=== PATIENT | male | born 1945 | race Caucasian/White ===

== ENCOUNTER 2017-09-25 13:08 | Day surgery (SDC) | payer OTHER, MEDICARE ==
[~2017-09-25] VITALS: Ht 180.3 cm; Wt 97.2 kg
[2017-09-25] MEDS ORDERED: METO25 (13:36)
[2017-09-25] MEDS ORDERED: LISI20 (13:37)
[2017-09-25] MEDS ORDERED: Simvastatin40 MG (13:38)
[2017-09-25] MEDS ORDERED: AMLO10 (13:38)
[2017-09-25] MEDS ORDERED: OMEPRAZOLE MAGN20 MG (13:38)
== END 2017-09-25 15:31 | disposition home or self-care (01) ==
LOC: ORSCSDS 13:08
PROVIDERS: Internal Medicine Gastroenterology
PROC: 0DBN8ZX Excision of Sigmoid Colon, Via Natural or Artificial Opening Endoscopic, Diagnostic (ICD-10-PCS; principal; 2017-09-25 14:45)
PROC: 0DBP8ZX Excision of Rectum, Via Natural or Artificial Opening Endoscopic, Diagnostic (ICD-10-PCS; principal; 2017-09-25 14:45)
PROC: 0DBL8ZX Excision of Transverse Colon, Via Natural or Artificial Opening Endoscopic, Diagnostic (ICD-10-PCS; principal; 2017-09-25 14:45)
PROC: 0DBH8ZX Excision of Cecum, Via Natural or Artificial Opening Endoscopic, Diagnostic (ICD-10-PCS; principal; 2017-09-25 14:45)
PROC: 0DBM8ZX Excision of Descending Colon, Via Natural or Artificial Opening Endoscopic, Diagnostic (ICD-10-PCS; principal; 2017-09-25 14:45)
PROC: 0DB58ZX Excision of Esophagus, Via Natural or Artificial Opening Endoscopic, Diagnostic (ICD-10-PCS; principal; 2017-09-25 14:45)
PROC: 0DB68ZX Excision of Stomach, Via Natural or Artificial Opening Endoscopic, Diagnostic (ICD-10-PCS; principal; 2017-09-25 14:45)
DX: K21.9 Gastro-esophageal reflux disease without esophagitis (principal); D12.3 Benign neoplasm of transverse colon; D12.0 Benign neoplasm of cecum; K63.5 Polyp of colon; K62.1 Rectal polyp; K64.8 Other hemorrhoids; K44.9 Diaphragmatic hernia without obstruction or gangrene; K31.9 Disease of stomach and duodenum, unspecified; Z12.11 Encounter for screening for malignant neoplasm of colon; Z86.010 Personal history of colon polyps; I10 Essential (primary) hypertension; J44.9 Chronic obstructive pulmonary disease, unspecified; E78.5 Hyperlipidemia, unspecified; F17.210 Nicotine dependence, cigarettes, uncomplicated; Z79.899 Other long term (current) drug therapy
CPT/HCPCS: 88305; 88342; J2250; J7120

== ENCOUNTER 2018-11-05 13:43 | Inpatient (IN) | payer OTHER, MEDICARE ==
[~2018-11-05] VITALS: Ht 180.3 cm; Wt 101.3 kg
[~2018-11-05 13:43] MED LIST: AMLO10; ATOR10 PO; Aspirin EC81 MG PO; ELIQUIS5 MG PO; FURO40 PO; LISI20 PO; MAGOXI400 PO; METO100ER PO; METO25; OMEPRAZOLE MAGN20 MG PO; POTA10T PO; STIOLTO RESPIMAT4 GM INH; Simvastatin40 MG
[2018-11-05 14:33] LABS: BASOPHILS ABSOLUTE AUTO 0.05 K/mm3 (0.00-0.23); BASOPHILS PERCENT AUTO 1 % (0-2); EOSINOPHILS ABSOLUTE AUTO 0.06 K/mm3 (0.00-0.68); EOSINOPHILS PERCENT AUTO 1 % (0-6); Hematocrit 39.1 % (37.0-53.0); Hemoglobin 12.5 g/dL (13.5-17.5); IMMATURE GRAN ABSOLUTE AUTO 0.03 K/mm3 (0.00-0.10); IMMATURE GRAN PERCENT AUTO 0 % (0-1); LYMPHOCYTES ABSOLUTE AUTO 1.46 K/mm3 (0.84-5.20); LYMPHOCYTES PERCENT AUTO 21 % (21-46); MONOCYTES ABSOLUTE AUTO 0.73 K/mm3 (0.16-1.47); MONOCYTES PERCENT AUTO 10 % (4-13); Mean Corpuscular HGB 29.5 pg (26.0-34.0); Mean Corpuscular Volume 92 fL (80-100); NEUTROPHILS ABSOLUTE AUTO 4.73 K/mm3 (1.96-9.15); NEUTROPHILS PERCENT AUTO 67 % (41-73); Platelet Count 272 K/mm3 (150-400); RDW Coefficient Variation 14.6 % (11.7-14.2); RDW Standard Deviation 48.9 fL (35.1-46.3); Red Blood Cell Count 4.24 M/mm3 (4.30-5.90); White Blood Cell Count 7.06 K/mm3 (4.00-11.30)
[2018-11-05 15:02] LABS: Alanine Aminotransfer (ALT/SGP 128 U/L (12-78); Albumin, Blood 3.7 g/dL (3.4-5.0); Albumin/Globulin Ratio 1.2 (0.8-1.8); Alk Phos 67 U/L (50-136); Anion Gap 8 mmol/L (6-16); Aspartate Aminotrans (AST/SGOT 74 U/L (12-37); Blood Urea Nitrogen 42 mg/dL (8-24); Bun/Creatinine Ratio 32.6 (12.0-20.0); CO2, Blood 27 mmol/L (21-32); Calcium, Blood 8.4 mg/dL (8.5-10.1); Chloride, Blood 104 mmol/L (98-108); Creatinine, Blood 1.29 mg/dL (0.60-1.20); Globulin, Blood 3.2 g/dL (2.2-4.0); Glomerular Filtration Rate 58 (60-); Glucose, Blood 101 mg/dL (70-99); Potassium, Blood 3.9 mmol/L (3.5-5.5); Sodium, Blood 139 mmol/L (136-145); Total Protein, Blood 6.9 g/dL (6.4-8.2); Troponin I <0.015 ng/mL (0.000-0.040)
[2018-11-05] MEDS ORDERED: Pacerone400 MG PO (15:11)
--- NOTE | 2018-11-05 18:30 | NUR ---
ADMIT NOTE- PT ALERT AND ORIENTED 1PA FOR SAFETY WITH AMBULATION. NO CURRENT C/O PAIN. NO S&S OF DISTRESS. DYSPNEA ON EXERTION. PT STATES HE USES 2L O2 VIA NC AT NIGHT AT HOME. PT CONFIRMED ALL OF HIS MEDICATIONS WITH JULIÁN GARVIN. SPOKE TO HIM AGAIN ABOUT THEM. PER THE PT RECONCILED MEDICATIONS ARE CORRECT. PT IS A [facility] PAT[facility] GOLD TEAM. LUNG SOUNDS ARE CLEAR IN ALL LOBES ON ARIVAL HOWEVER THE LEFT IS FAR MORE DIMINISHED THAN THE RIGHT. PT FEET HAVE +2 PITTING EDEMA, HOWEVER LEGS HAVE NONE. PASSED ON IN BEDSIDE REPORT TO NIGHT RN ETIENNE. NIGHT RN TO COMPLETE FULL ADMIT ASSESSMENT.
--- NOTE | 2018-11-06 03:31 | NUR ---
SHIFT SUMMARY PT. ARRIVED YESTERDAY EVENING TO THE UNIT. A&O X4 WITH 1 ASSIST TO THE BATHROOM. CHF EXACERBATION, SOB ON EXERTION WITH 2+ SWELLING TO BLE. ON 1200ML FLUID RESTRICTION. PT. ON RA WHILE AWAKE BUT USES 2L OF 02 AT HS. HAS NOT BEEN ABLE TO SLEEP T/O THE NIGHT, BUT RESTING COMFORTABLY IN BED WATCHING TV, NO APPARENT DISTRESS NOTED. TELEMETRY IN PLACE WELL SCD'S. CALL LIGHT WITH IN REACH AND SIDE RAILS UP X2. WILL CONT TO MONITOR.
[2018-11-06 04:45] LABS: BASOPHILS ABSOLUTE AUTO 0.04 K/mm3 (0.00-0.23); BASOPHILS PERCENT AUTO 1 % (0-2); EOSINOPHILS ABSOLUTE AUTO 0.08 K/mm3 (0.00-0.68); EOSINOPHILS PERCENT AUTO 1 % (0-6); Hematocrit 39.5 % (37.0-53.0); Hemoglobin 12.5 g/dL (13.5-17.5); IMMATURE GRAN ABSOLUTE AUTO 0.03 K/mm3 (0.00-0.10); IMMATURE GRAN PERCENT AUTO 0 % (0-1); LYMPHOCYTES ABSOLUTE AUTO 1.15 K/mm3 (0.84-5.20); LYMPHOCYTES PERCENT AUTO 17 % (21-46); MONOCYTES ABSOLUTE AUTO 0.62 K/mm3 (0.16-1.47); MONOCYTES PERCENT AUTO 9 % (4-13); Mean Corpuscular HGB 30.4 pg (26.0-34.0); Mean Corpuscular HGB Conc 31.6 g/dL (31.5-36.5); Mean Platelet Volume 9.9 fL (9.1-12.4); NEUTROPHILS PERCENT AUTO 72 % (41-73); Platelet Count 238 K/mm3 (150-400); RDW Coefficient Variation 14.4 % (11.7-14.2); RDW Standard Deviation 50.6 fL (35.1-46.3); Red Blood Cell Count 4.11 M/mm3 (4.30-5.90); White Blood Cell Count 6.72 K/mm3 (4.00-11.30)
[2018-11-06 04:46] LABS: Mean Corpuscular Volume 96 fL (80-100)
[2018-11-06 05:02] LABS: Anion Gap 8 mmol/L (6-16); Blood Urea Nitrogen 39 mg/dL (8-24); Bun/Creatinine Ratio 32.2 (12.0-20.0); CO2, Blood 28 mmol/L (21-32); Calcium, Blood 8.7 mg/dL (8.5-10.1); Chloride, Blood 104 mmol/L (98-108); Creatinine, Blood 1.21 mg/dL (0.60-1.20); Glomerular Filtration Rate >60 (60-); Glucose, Blood 113 mg/dL (70-99); Magnesium, Blood 2.3 mg/dL (1.6-2.4); Potassium, Blood 3.7 mmol/L (3.5-5.5); Sodium, Blood 140 mmol/L (136-145)
--- NOTE | 2018-11-06 14:34 | NUR ---
DR BRIGGS OFFICE NOTIFIED OF CONSULT.
--- NOTE | 2018-11-06 17:07 | NUR ---
SHIFT SUMMARY- PT A/OX4, INDEP IN ROOM. PT DENIES ANY PAIN. LS DIMINISHED WITH FAINY EXP WHEEZE AND COARSENESS IN THE BASES. ON 2L N/C AT HS, HAS BEEN ON RA DURING THE DAY. PT REMAINS SOB WITH EXERTION. ON 1200ML FLUID RESTRICTION. TELE AFIB 90-110'S. PT IS ANXIOUSLY AWAITING DR BRIGGS'S CONSULT, CONSULT PLACED THIS AM. NO OTHER ACUTE CHANGES THIS SHIFT.
--- NOTE | 2018-11-07 05:45 | NUR ---
SHIFT SUMMARY- PT. AWAKE MOST OF THE NIGHT, 02 @ 2L. A&O, INDEPENDENT. DENIES ANY PAIN OR DISCOMFORT. STILL HAVING SOB ON EXERTION. WAITING TO BE SEEN BY CARDIO THIS AM. CALL LIGHT WITHIN REACH AND SIDE RAILS UP X2. WILL CONT TO MONITOR.
--- NOTE | 2018-11-07 08:52 | NUR ---
SPOKE WTIH DR BRIGGS HE IS AWARE OF CONSULT AND WILL BE IN TO SEE PT.
--- NOTE | 2018-11-07 09:33 | NUR ---
DR BRIGGS IN TO SEE PT.
--- NOTE | 2018-11-07 11:49 | NUR ---
Echocardiogram completed.
--- NOTE | 2018-11-07 12:51 | NUR ---
[facility] TO [facility].
--- NOTE | 2018-11-07 13:52 | NUR ---
REPORT CALLED TO HUSSEIN NGUYEN TO TRANSFER TO PCU 1 FROM [facility]. BELONGINGS TAKEN TO PCU.
--- NOTE | 2018-11-07 14:33 | NUR ---
PT ARRIVED TO PCU 1 VIA [facility] FROM [facility], DID RECIEVE REPORT FROM AMADOR RN. TR BAND SITE IS CLEAR WITH NO DRAINING, OR SWELLING. HE STATES HE FEELS A LOT BETTER, HE WAS CARDIOVERTED WHILE IN PROCEDURE. EXPLAINED WHAT WE WILL BE DOING, AND WHEN NURSE WILL START DEFLATING BAND. CALL LIGHT IN REACH.
--- NOTE | 2018-11-07 15:57 | NUR ---
b/ps have been running in the 80's, heart rate in the 50's, call to Dr. Moscoso, he said to just keep an eye on it. will continue to monitor, call light in reach.
--- NOTE | 2018-11-07 18:50 | NUR ---
VS ARE SOME BETTER, PT DID NOT FEEL UP TO EATING DINNER, TR BAND SITE IS CLEAR, NO FURTHER CHANGES.
--- NOTE | 2018-11-07 20:31 | NUR ---
Amio drip rate change to 16.6 ml/hr per orders at 2021. Rate change verified with CHAZ Thomas.
--- NOTE | 2018-11-08 02:23 | NUR ---
Assumed care at approx 1900. Pt bradycardic and hypotensive in low 100's/70's. Dr. Moscoso notified of cardiac state and orders to give metoprolol and PO amio clarified. Per dr. moscoso, D/C PO amio and hold metoprolol until 7/4 in the AM. This RN followed orders as recieved. Pt alert and oriented, answers questions and follows commands appropriately. Moves independantly in bed, able to ambulate to BSC and up to chair with minimal assistance. TR band in place, air removed per protocol, arm band in place. No bleed or hematoma present at R radial site. See shift assessment for detailed systems assessment. Call light in reach. Pt is able to make needs known. Will continue to monitor.
[2018-11-08 04:08] LABS: BASOPHILS ABSOLUTE AUTO 0.01 K/mm3 (0.00-0.23); BASOPHILS PERCENT AUTO 0 % (0-2); EOSINOPHILS PERCENT AUTO 0 % (0-6); Hematocrit 40.7 % (37.0-53.0); Hemoglobin 12.6 g/dL (13.5-17.5); IMMATURE GRAN ABSOLUTE AUTO 0.07 K/mm3 (0.00-0.10); IMMATURE GRAN PERCENT AUTO 1 % (0-1); LYMPHOCYTES ABSOLUTE AUTO 0.92 K/mm3 (0.84-5.20); LYMPHOCYTES PERCENT AUTO 8 % (21-46); MONOCYTES ABSOLUTE AUTO 1.06 K/mm3 (0.16-1.47); MONOCYTES PERCENT AUTO 9 % (4-13); Mean Corpuscular HGB 29.8 pg (26.0-34.0); Mean Corpuscular Volume 96 fL (80-100); Mean Platelet Volume 10.6 fL (9.1-12.4); NEUTROPHILS ABSOLUTE AUTO 9.51 K/mm3 (1.96-9.15); NEUTROPHILS PERCENT AUTO 82 % (41-73); Platelet Count 270 K/mm3 (150-400); RDW Coefficient Variation 14.9 % (11.7-14.2); Red Blood Cell Count 4.23 M/mm3 (4.30-5.90); White Blood Cell Count 11.57 K/mm3 (4.00-11.30)
[2018-11-08 04:23] LABS: Bun/Creatinine Ratio 32.8 (12.0-20.0); Calcium, Blood 8.6 mg/dL (8.5-10.1); Creatinine, Blood 1.31 mg/dL (0.60-1.20); Potassium, Blood 4.2 mmol/L (3.5-5.5)
--- NOTE | 2018-11-08 05:34 | NUR ---
Shift Summary No acute changes this shift. Pt remains with VSS. Alert and oriented, responds to questions and commands appropriately, able to make needs known, and uses call light appropriately. Pt remains with occasional SOB relieved with the placement of 2L NC. Pt states he doesn't sleep more than 2 hours at a time at baseline, tonight, pt slept approx total of 4 hours in 2 hour stents. Rradial site free from bleed or hematoma, pulse palp, fully deflated at 0415. Pt educated on arm board and R arm restriction and states understanding. Amio drip infusing into LW site at per orders. Pt c/o back pain relieved with tylenol PRN er emar and reposition to recliner chair. Pt amb to bsc with SBA. Will continue to monitor and update as needed.
--- NOTE | 2018-11-08 14:22 | NUR ---
PT HAS HAD TWO EPISODES OF EMESIS. ZOFRAN IS ADMIN AFTER FIRST WITH MINIMAL RESULTS. IS CALLED AFTER SECOND EPISODE AND REGLAN IV 5MG Q6 PRN NAUSEA AND VOMITTING IS ORDERED. PT IS UP TO CHAIR AND IS ENCOURAGED TO REFRAIN FROM DRINKING EVEN SMALL AMOUNTS FOR A LITTLE WHILE UNTIL STOMACH SETTLES DOWN. HE VERBALIZED UNDERSTANDING.
--- NOTE | 2018-11-08 18:02 | NUR ---
END OF SHIFT; PT HAD TWO EPISODES OF NAUSEA WITH VOMITTING TODAY. SUCCESSFULLY TREATED AFTER ADMIN OF REGLAN. PT STATES STILL FEELS NAUSEATED BUT NO VOMITTING SINCE REGLAN. REFUSED DINNER TONIGHT. HAS BEEN RESTING COMFORTABLY ONLY WAKING TO ASK FOR TYLENOL FOR BACK PAIN AND TO USE RESTROOM. HE IS MED WITH TELE STATUS AT THIS TIME. HR IS 67 IN AFIB. PT DOES EXPXRESS ANXIETY DURING DAY ABOUT GOING HOME HE IS CONCERNED ABOUT BEING ABLE TO TAKE CARE OF HIMSELF SINCE SPOUSE ONE MONTH AGO. VITAL SIGNS ARE STABLE CHARTED AND PT IS AO X 4. HIS LUNGS ARE CLEAR TO AUSCULTATION. TR BAND SITE IS CLEAN AND DRY AND PT STATES HE FEELS BETTER WITH A BANDAID AND ARM BOARD OVER SITE. HE DENIES ANY CHEST PAIN OR DISCOMFORT.
--- NOTE | 2018-11-08 23:09 | NUR ---
Assumed care of pt at approx 1900. Pt sleeping at time of arrival. Pt awoken to verbal and light touch. VSS. breathing easy and unlabored. No apparent sign of distress. Pt denies chest pain, chest pressure, SOB, nausea. Pt appears comfortable. Pt able to move all extremities independantly, answers questions appropriately, follows commands and directions, uses call light to make needs known. Pt up to BSC and uses urinal at bedside independantly. See shift assessment for detailed systems assessment. Pt perfusing to all extremities. R radial site with apparent old blood drainage consistant with day shift, per day shift RN. No tenderness, hematoma, or active bleed assessed. Dressing changed on r radial site and marisa dressing applied, arm board in place. Pt educated on arm board and radial site restrictions. Pt has been compliant with restrictions. Will continue to monitor and update as needed. Pt is currently medical status per orders, still remains in PCU 1.
[2018-11-09 03:59] LABS: BASOPHILS ABSOLUTE AUTO 0.03 K/mm3 (0.00-0.23); BASOPHILS PERCENT AUTO 0 % (0-2); EOSINOPHILS ABSOLUTE AUTO 0.03 K/mm3 (0.00-0.68); EOSINOPHILS PERCENT AUTO 0 % (0-6); Hematocrit 37.8 % (37.0-53.0); Hemoglobin 12.1 g/dL (13.5-17.5); IMMATURE GRAN ABSOLUTE AUTO 0.02 K/mm3 (0.00-0.10); IMMATURE GRAN PERCENT AUTO 0 % (0-1); LYMPHOCYTES ABSOLUTE AUTO 0.89 K/mm3 (0.84-5.20); LYMPHOCYTES PERCENT AUTO 11 % (21-46); MONOCYTES ABSOLUTE AUTO 0.68 K/mm3 (0.16-1.47); MONOCYTES PERCENT AUTO 8 % (4-13); Mean Corpuscular HGB 30.5 pg (26.0-34.0); Mean Corpuscular Volume 95 fL (80-100); NEUTROPHILS ABSOLUTE AUTO 6.84 K/mm3 (1.96-9.15); NEUTROPHILS PERCENT AUTO 81 % (41-73); Platelet Count 241 K/mm3 (150-400); RDW Coefficient Variation 14.6 % (11.7-14.2); RDW Standard Deviation 51.4 fL (35.1-46.3); Red Blood Cell Count 3.97 M/mm3 (4.30-5.90); White Blood Cell Count 8.49 K/mm3 (4.00-11.30)
[2018-11-09 04:18] LABS: Anion Gap 6 mmol/L (6-16); Blood Urea Nitrogen 34 mg/dL (8-24); Bun/Creatinine Ratio 30.9 (12.0-20.0); CO2, Blood 30 mmol/L (21-32); Calcium, Blood 8.1 mg/dL (8.5-10.1); Chloride, Blood 102 mmol/L (98-108); Glomerular Filtration Rate >60 (60-); Glucose, Blood 102 mg/dL (70-99); Potassium, Blood 3.7 mmol/L (3.5-5.5); Sodium, Blood 138 mmol/L (136-145)
--- NOTE | 2018-11-09 05:45 | NUR ---
Shift Summary No acute changes this shift. VSS. Pt asleep for the majority of this shift. Pt states "I feel better" with the sleep he has recieved. No events on tele. No apparent sign of distress, breathing easy and unlabored. Pt denies SOB, denies chest pain or pressure. Pain within proportion this shift with administration of tylenol per orders. Pt able to void with either the urinal at bedside, or to ambulate to bathroom with minimal assistance. Danny dressing remains in place over TR site on R radial. No complains of pain, no blood on dressing at this time. See previous notes for detailed account of begining of shift. Will continue to monitor and update as needed.
[2018-11-09] MEDS ORDERED: SPIR25 PO (09:51)
== END 2018-11-09 11:18 | disposition home or self-care (01) | DRG 287 ==
LOC: ER 13:43 → MEDS 16:10 → PCU 11-07 13:51
PROVIDERS: Emergency Medicine; Internal Medicine; ADMIT Internal Medicine
PROC: B201YZZ Plain Radiography of Multiple Coronary Arteries using Other Contrast (ICD-10-PCS; principal; 2018-11-07)
PROC: 5A2204Z Restoration of Cardiac Rhythm, Single (ICD-10-PCS; 2018-11-07)
DX: I11.0 Hypertensive heart disease with heart failure (principal); I50.43 Acute on chronic combined systolic (congestive) and diastolic (congestive) heart failure; I48.2 Chronic atrial fibrillation; J44.9 Chronic obstructive pulmonary disease, unspecified; E78.5 Hyperlipidemia, unspecified; K21.9 Gastro-esophageal reflux disease without esophagitis; I25.10 Atherosclerotic heart disease of native coronary artery without angina pectoris; I71.4 Abdominal aortic aneurysm, without rupture; I42.9 Cardiomyopathy, unspecified; I25.2 Old myocardial infarction; Z95.1 Presence of aortocoronary bypass graft; Z95.810 Presence of automatic (implantable) cardiac defibrillator; Z95.5 Presence of coronary angioplasty implant and graft; Z79.01 Long term (current) use of anticoagulants; Z79.82 Long term (current) use of aspirin; Z79.899 Other long term (current) drug therapy; Z87.891 Personal history of nicotine dependence
CPT/HCPCS: 36415; 71046; 80048; 80053; 83735; 84484; 85025; 92960; 93005; 93010; 93306; 93458; 94640; 94664; 94760; 98960; 99152; 99285-25; A9270; C1769; C1894; J0282; J1644; J2250; J2405; J2765; J3010; J7030; J7060; Q9967

== ENCOUNTER 2018-12-21 06:11 | Day surgery (SDC) | payer OTHER ==
[~2018-12-21] VITALS: Ht 182.9 cm; Wt 99.0 kg
[~2018-12-21 06:11] MED LIST changes: +Pacerone400 MG PO; +SPIR25 PO
--- NOTE | 2018-12-21 07:30 | NUR ---
CALL LIGHT IN REACH.
[2018-12-21 07:35] LABS: Albumin, Blood 3.9 g/dL (3.4-5.0); Albumin/Globulin Ratio 1.1 (0.8-1.8); Bilirubin, Direct 0.3 mg/dL (0.0-0.3); Bilirubin, Indirect 0.5 mg/dL (0.1-0.7); Bilirubin, Total 0.8 mg/dL (0.1-1.0); Free Thyroxine 1.11 ng/dL (0.70-1.60); Globulin, Blood 3.6 g/dL (2.2-4.0); Total Protein, Blood 7.5 g/dL (6.4-8.2)
[2018-12-21 07:38] LABS: Thyroid Stimulating Hormone 5.17 uIU/mL (0.360-4.800)
--- NOTE | 2018-12-21 09:04 | NUR ---
PT TOLERATED CARDIOVERSION WELL; LUNG TONES WHEEZES NOTED-PT RECEIVING DUONEB TX.
--- NOTE | 2018-12-21 09:09 | NUR ---
PT DENIES CP AND IS ASKING ABOUT CARDIOVERSION. CALL LIGHT IN REACH. PT'S DAUGHTER IN ROOM.
--- NOTE | 2018-12-21 09:19 | NUR ---
DR HOPKINS IN ROOM TO SEE PT.
--- NOTE | 2018-12-21 09:59 | NUR ---
DISCHARGE INSTRUCTIONS REVIEWED ALL QUESTIONS ANSWERED. 20 G IV DISCONTINUED FOR LEFT HAND WITH INTACT CANNULA. PT ESCORTED OUT VIA WHEELCHAIR ESCORT.
== END 2018-12-22 23:02 | disposition home or self-care (01) ==
LOC: MHTC 06:11
PROVIDERS: Internal Medicine Cardiovascular Disease
DX: I48.0 Paroxysmal atrial fibrillation (principal); I48.2 Chronic atrial fibrillation; I11.0 Hypertensive heart disease with heart failure; I50.9 Heart failure, unspecified; I25.10 Atherosclerotic heart disease of native coronary artery without angina pectoris; J44.9 Chronic obstructive pulmonary disease, unspecified; E78.5 Hyperlipidemia, unspecified; F17.200 Nicotine dependence, unspecified, uncomplicated; Z79.899 Other long term (current) drug therapy; Z79.02 Long term (current) use of antithrombotics/antiplatelets
CPT/HCPCS: 36415; 80076; 84439; 84443; 92960; 94640; 99152; J2250; J3010; J7030

== ENCOUNTER 2023-06-13 14:04 | Inpatient (IN) | payer OTHER ==
[~2023-06-13] VITALS: Ht 177.8 cm; Wt 85.7 kg
[~2023-06-13 14:04] MED LIST changes: +OMEP20ER PO; -OMEPRAZOLE MAGN20 MG PO
[2023-06-13] MEDS ORDERED: NS 1,000 ML IV SCH (14:40)
[2023-06-13] MEDS ORDERED: SOTO80 PO (14:55)
[2023-06-13 14:58] LABS: BASOPHILS ABSOLUTE AUTO 0.04 K/mm3 (0.00-0.23); BASOPHILS PERCENT AUTO 1 % (0-2); EOSINOPHILS ABSOLUTE AUTO 0.06 K/mm3 (0.00-0.68); EOSINOPHILS PERCENT AUTO 1 % (0-6); Hematocrit 38.7 % (37.0-53.0); Hemoglobin 13.7 g/dL (13.5-17.5); IMMATURE GRAN ABSOLUTE AUTO 0.02 K/mm3 (0.00-0.10); IMMATURE GRAN PERCENT AUTO 0 % (0-1); LYMPHOCYTES ABSOLUTE AUTO 1.26 K/mm3 (0.84-5.20); LYMPHOCYTES PERCENT AUTO 15 % (21-46); MONOCYTES ABSOLUTE AUTO 0.51 K/mm3 (0.16-1.47); MONOCYTES PERCENT AUTO 6 % (4-13); Mean Corpuscular HGB 33.4 pg (26.0-34.0); Mean Corpuscular HGB Conc 35.4 g/dL (31.5-36.5); Mean Corpuscular Volume 94 fL (80-100); Mean Platelet Volume 10.5 fL (9.1-12.4); NEUTROPHILS ABSOLUTE AUTO 6.38 K/mm3 (1.96-9.15); NEUTROPHILS PERCENT AUTO 77 % (41-73); Platelet Count 286 K/mm3 (150-400); RDW Coefficient Variation 12.7 % (11.7-14.2); RDW Standard Deviation 43.5 fL (35.1-46.3); White Blood Cell Count 8.27 K/mm3 (4.00-11.30)
[2023-06-13 15:12] LABS: Albumin, Blood 3.9 g/dL (3.4-5.0); Albumin/Globulin Ratio 1.1 (0.8-1.8); Bilirubin, Total 0.8 mg/dL (0.1-1.0); Bun/Creatinine Ratio 18.1 (12.0-20.0); Calcium, Blood 9.5 mg/dL (8.5-10.1); Creatinine, Blood 1.05 mg/dL (0.60-1.20); Globulin, Blood 3.5 g/dL (2.2-4.0); Potassium, Blood 4.2 mmol/L (3.5-5.5); Total Protein, Blood 7.4 g/dL (6.4-8.2)
[2023-06-13] MEDS ORDERED: Acetaminophen 325 MG TABLET PO PRN (18:10)
[2023-06-13] MEDS ORDERED: FLU VACC QS2023-24(6MOS UP)/PF 60 MCG/0.5 ML SYRINGE IM SCH (18:10)
[2023-06-13] MEDS ORDERED: Albuterol 2.5 MG/3 ML VIAL INH PRN (18:20)
[2023-06-13] MEDS ORDERED: LEVSOD75 PO (19:36)
[2023-06-13 19:44] VITALS: BP 139/79
[2023-06-13] MEDS ORDERED: Lisinopril 5 MG Tab PO SCH (21:00)
[2023-06-13] MEDS ORDERED: Sotalol HCl 80 MG Tab PO SCH (21:00)
[2023-06-13] MEDS ORDERED: Atorvastatin 10 MG Tab PO SCH (21:00)
[2023-06-13] MEDS ORDERED: Apixaban 5 MG Tab PO SCH (21:00)
[2023-06-14 02:44] VITALS: BP 114/70
--- NOTE | 2023-06-14 05:44 | NUR ---
SHIFT SUMMARY PT ADMIT FOR SYNCOPE EPISODE WHICH RESULTED IN AN INJURIOUS FALL. NOSE AND LOWER LIP EFFECTED. PT HAS BANDAID ON LOWER LIP/CHIN FOR SPLIT IN SKIN. NO OTHER COMPLAINTS OF PAIN. PT IS INDEPENDANT AND ABLE TO VERBALIZE NEEDS. USES CALL LIGHT APPROPRIATELY AND HAS BEEN PLEASANT AND COOPERATIVE WITH HIS CARE. 2 RN SKIN CHECK SHOWED NO SIGNIFICANT SKIN ISSUES. SOME SCATTERED BRUISING ON ARMS.
[2023-06-14 05:48] LABS: Magnesium, Blood 2.3 mg/dL (1.6-2.4)
[2023-06-14 05:49] LABS: Bun/Creatinine Ratio 21.3 (12.0-20.0); Calcium, Blood 8.8 mg/dL (8.5-10.1); Creatinine, Blood 0.84 mg/dL (0.60-1.20); Potassium, Blood 3.9 mmol/L (3.5-5.5)
[2023-06-14] MEDS ORDERED: Omeprazole 20 MG CapCR PO SCH (06:00)
[2023-06-14 07:16] VITALS: BP 110/63
[2023-06-14] MEDS ORDERED: Potassium Chloride 10 Meq Tablet SA PO SCH (08:00)
[2023-06-14] MEDS ORDERED: Metoprolol Succinate 25 MG TABCR PO SCH (09:00)
[2023-06-14] MEDS ORDERED: Spironolactone 25 MG Tab PO SCH (09:00)
[2023-06-14 10:15] LABS: CHOL/HDL RATIO 3.4; Cholesterol 139 mg/dL (50-200); HDL Cholesterol 41 mg/dL (>39); LDL/HDL RATIO 1.8; Low Density Lipoprotein Chol 74 mg/dL (0-110); Triglycerides 118 mg/dL (30-160); Very Low Density Lipoprot Chol 23 mg/dL (6-32)
[2023-06-14 15:22] VITALS: BP 118/59
[2023-06-14 15:57] LABS: International Normalized Ratio 1.02; Prothrombin Time Results 10.7 Sec (9.7-11.5)
[2023-06-14 16:00] LABS: Anti-Xa UFH, PHA Monitoring >1.50 IU/mL
--- NOTE | 2023-06-14 18:09 | NUR ---
SHIFT SUMMARY PT AWAKE DURING SHIFT REPORT. ADMITTED FOR SYNCOPE AND COLLAPSE D/T 48 SEC RUN OF V-TACH; PER PACER INTEROGATION IN ER. PT SENT OVER FROM [place] LAST NIGHT. CARDIOLOGY CONSULT CALLED THIS AM TO DR MONROE. NEW ORDERS PLACED. DR MONROE TO TO SEE PT AFTER ECHO COMPLETE. ADDITIONAL ORDERS PLACED. HEPARIN DRIP TO START AT 2100 PER PHARMACY PT HAD ALREADY HAD ELIQUIS IN AM AND IS THERAPUTIC. PT TO BE NPO AFTER MN EXCEPT WATER AND ICE FOR ONE DAY STRESS TEST PROTOCOL. PT AWARE OF ORDERS. SITTING UP IN BED EATING DINNER AT THIS TIME. UP WITH 1P ASSIST TO BTHRM D/T SYNCOPE AND FALL AT HOME. DENIES FURTHER NEEDS AT THIS TIME. CALL LT IN REACH.
[2023-06-14 20:13] VITALS: BP 123/65
[2023-06-14] MEDS ORDERED: Heparin Sodium,Porcine/0.5 NS 500 ML IV SCH (21:00)
[2023-06-14] MEDS ORDERED: Sotalol HCl 80 MG Tab PO SCH (21:00)
[2023-06-15 03:22] LABS: Magnesium, Blood 2.2 mg/dL (1.6-2.4)
[2023-06-15] MEDS ORDERED: Dose Adjust by Pharmacy XX STA (03:54)
[2023-06-15 04:22] VITALS: BP 121/57
[2023-06-15] MEDS ORDERED: Levothyroxine Sodium 0.075 MG Tab PO SCH (06:00)
--- NOTE | 2023-06-15 06:01 | NUR ---
SHIFT SUMMARY A/OX4. ROOM AIR. PATIENT SATES HE USES 4L NC TO SLEEP AT NIGHT AT HOME. STATES DOES NOT HAVE SLEEP APNEA,. BUT CAN NOT TELL ME NEED FOR O2, SAYS [facility] STARTED THIS AT NIGHT. SHIFT OTHERWISE UNREMARKABLE. NO CARDIAC EVENTS. NO EPISODES OF SYNCOPE OR LIGHTHEADEDNESS. HEPARIN GTT STARTED AT 2100. TYLENOL GIVEN X1 OVERNIGHT FOR BACK PAIN THAT HE STATES IS PRESENT AT HOME TOO OCCASIONALLY. BM 06/15. CALL LIGHT IN REACH. STANDBY ASSIST R/T SYNCOPE.
[2023-06-15 07:34] VITALS: BP 127/75
[2023-06-15] MEDS ORDERED: Empagliflozin 10 MG TAB PO SCH (09:00)
[2023-06-15 10:28] LABS: BASOPHILS ABSOLUTE AUTO 0.05 K/mm3 (0.00-0.23); BASOPHILS PERCENT AUTO 1 % (0-2); EOSINOPHILS ABSOLUTE AUTO 0.11 K/mm3 (0.00-0.68); EOSINOPHILS PERCENT AUTO 2 % (0-6); Hematocrit 38.2 % (37.0-53.0); Hemoglobin 13.5 g/dL (13.5-17.5); IMMATURE GRAN ABSOLUTE AUTO 0.04 K/mm3 (0.00-0.10); IMMATURE GRAN PERCENT AUTO 1 % (0-1); LYMPHOCYTES ABSOLUTE AUTO 1.31 K/mm3 (0.84-5.20); LYMPHOCYTES PERCENT AUTO 19 % (21-46); MONOCYTES ABSOLUTE AUTO 0.62 K/mm3 (0.16-1.47); MONOCYTES PERCENT AUTO 9 % (4-13); Mean Corpuscular HGB 33.3 pg (26.0-34.0); Mean Corpuscular HGB Conc 35.3 g/dL (31.5-36.5); Mean Corpuscular Volume 94 fL (80-100); Mean Platelet Volume 10.5 fL (9.1-12.4); NEUTROPHILS ABSOLUTE AUTO 4.84 K/mm3 (1.96-9.15); NEUTROPHILS PERCENT AUTO 69 % (41-73); Platelet Count 158 K/mm3 (150-400); RDW Coefficient Variation 12.7 % (11.7-14.2); RDW Standard Deviation 43.6 fL (35.1-46.3); Red Blood Cell Count 4.06 M/mm3 (4.30-5.90); White Blood Cell Count 6.97 K/mm3 (4.00-11.30)
[2023-06-15] MEDS ORDERED: Caffeine Citrated 60 MG/3 ML Vial ONE (14:06)
[2023-06-15] MEDS ORDERED: Regadenoson 0.4 MG/5 ML SYRINGE ONE (14:18)
[2023-06-15 15:56] VITALS: BP 120/75
--- NOTE | 2023-06-15 18:00 | NUR ---
SHIFT SUMMARY PT AOX4, SBA TO THE BR. NPO FOR MOST OF THE SHIFT TO COMPLETE A STRESS TEST, STRESS TEST HAS BEEN COMPLETED. HEPARIN DRIP INFUSING, PT IS TOLERATING IT WELL. HE HAS HAD NO COMPLAINTS THIS SHIFT. HE IS ON 4L O2 AT NIGHT, RA DURING THE DAY. NO EVENTS PER TELE. CALL LIGHT WITHIN REACH, BED IN THE LOWEST POSITION. WILL REPORT TO ONCOMING NURSE.
[2023-06-15] MEDS ORDERED: JARDIANCE10 MG PO (18:33)
--- NOTE | 2023-06-15 18:49 | NUR ---
DISCHARGE NOTE PT TO DISCHARGE HOME, HE IS BEING PICKED UP BY HIS DAUGHTER. ALL DISCHARGE PAPERWORK HAS BEEN PROVIDED, HE IS CURRENTLY WAITING ON HIS RIDE. IV REMOVED, TELE RETURNED. MEDICATIONS FAXED TO THE PHARMACY OF HIS CHOICE.
--- NOTE | 2023-06-15 19:38 | NUR ---
193: PT ESCORTED FROM UNIT BY BERTA TO LOBBY TO MEET HIS DAUGHTER FOR TRANSPORT HOME VIA POV. PT IS A/O, BREATHING IS EVEN AND UNLABORED. NO ACUTE DISTRESS NOTED. REPORTS HE HAS ALL OF HIS BELONGINGS. NO FURTHER NEEDS OR QUESTIONS AT THIS TIME.
== END 2023-06-15 19:33 | disposition home or self-care (01) | DRG 309 ==
LOC: ER 14:04 → MEDS 14:05 → ER 14:05 → MEDS 14:05
PROVIDERS: Emergency Medicine; Internal Medicine Cardiovascular Disease; Nurse Practitioner Acute Care; ADMIT Internal Medicine
DX: I49.01 Ventricular fibrillation (principal); I50.42 Chronic combined systolic (congestive) and diastolic (congestive) heart failure; I42.8 Other cardiomyopathies; I47.29 Other ventricular tachycardia; I48.0 Paroxysmal atrial fibrillation; I25.10 Atherosclerotic heart disease of native coronary artery without angina pectoris; I11.0 Hypertensive heart disease with heart failure; E66.3 Overweight; E78.5 Hyperlipidemia, unspecified; J44.9 Chronic obstructive pulmonary disease, unspecified; I25.2 Old myocardial infarction; I71.40 Abdominal aortic aneurysm, without rupture, unspecified; K21.9 Gastro-esophageal reflux disease without esophagitis; E03.9 Hypothyroidism, unspecified; F17.210 Nicotine dependence, cigarettes, uncomplicated; Z95.810 Presence of automatic (implantable) cardiac defibrillator; Z68.27 Body mass index [BMI] 27.0-27.9, adult; Z88.1 Allergy status to other antibiotic agents; Z79.01 Long term (current) use of anticoagulants; Z79.890 Hormone replacement therapy; Z79.899 Other long term (current) drug therapy
CPT/HCPCS: 36415; 70450; 71045; 78452; 80048; 80053; 80061; 83735; 83880; 84443; 84450; 84460; 84484; 85025; 85520; 85610; 85730; 93005; 93010; 93017; 93306; 94640; 94664; 94760; 99285-25; A9270; A9500; J0706; J1644; J2785; J7030